=== PATIENT | female | born 1945 | race Caucasian/White ===

== ENCOUNTER 2017-01-25 18:12 | Emergency (ER) | payer OTHER ==
[~2017-01-25] VITALS: Ht 175.3 cm; Wt 84.4 kg
[~2017-01-25 18:12] MED LIST: AMBIEN 10 MG TA10 MG PO; BENADRYL25 MG PO; CELEXA 20 MG TA20 M1 PO; DIAZEPAM 5 MG5 M1 PO; FISH OIL 1,001000 M1 PO; GLUCOSAMINE &1 EAC1 PO; NORCO 5-325 TA1 EACH PO; NORVASC10 MG PO; PREDNISONE 20 M20 MG PO; SYNTHROID100 MCG PO; ULTRAM 50MG TAB50 MG PO; VENTOLIN HFA 1818 GM INH; VIVELLE1 EAC1 TD; WOMEN'S MULTI1 EACH PO
[2017-01-25] MEDS ORDERED: NORCO 5-325 TA1 EACH PO (19:26)
[2017-01-25 19:29] VITALS: BP 143/76
== END 2017-01-25 19:29 ==
LOC: ER 18:12
DX: S86.811A Strain of other muscle(s) and tendon(s) at lower leg level, right leg, initial encounter (principal); M79.1 Myalgia; E03.9 Hypothyroidism, unspecified; I10 Essential (primary) hypertension; Z88.1 Allergy status to other antibiotic agents; Z88.8 Allergy status to other drugs, medicaments and biological substances; W08.XXXA Fall from other furniture, initial encounter; Y93.89 Activity, other specified; Y92.89 Other specified places as the place of occurrence of the external cause; Y99.8 Other external cause status